=== PATIENT | male | born 1970 | race Caucasian/White ===

== ENCOUNTER 2020-05-27 07:27 | Outpatient (CLI) | payer OTHER, SELFPAY ==
--- NOTE | ~2020-05-27 | XR_ITS ---
EXAMINATION: XR thoracic spine 3V DATE: 05/27/2020 08:58 INDICATION: Back pain TECHNIQUE: AP, lateral and lateral swimmer's views of the thoracic spine were obtained. COMPARISON: None. FINDINGS: There is no fracture, dislocation, or subluxation. Mild loss of intervertebral disc space h eight is present in the lower thoracic spine. The vertebral body heights are maintained. Small degene rative osteophytes project from the anterior endplates of multiple vertebral bodies. IMPRESSION: 1. Mild thoracic spondylosis without acute findings. Reviewed, dictated and finalized at location A.
--- NOTE | ~2020-05-27 | XR_ITS ---
EXAMINATION: XR chest 2V DATE: 05/27/2020 08:58 INDICATION: Tobacco smoker presenting with mid back pain TECHNIQUE: PA and lateral views of the chest were obtained. COMPARISON: Chest radiograph dated 06/23/[address] dated 09/07/2019 FINDINGS: Mild apical emphysema better appreciated on prior CT with unchanged mild biapical pleural-parenchymal scarring. No other airspace opacities, pulmonary edema, pleural effusion or pneumothorax. The cardio mediastinal silhouette is normal. Thoracic dextroscoliosis with mild spondylosis. IMPRESSION: 1. Mild emphysema with biapical pleural-parenchymal scarring. No acute cardiopulmonary disease. Reviewed, dictated and finalized at location A. IMPRESSION: 1. Mild emphysema with biapical pleural-parenchymal scarring. No acute cardiopu lmonary disease.
== END 2020-05-27 07:28 ==
PROVIDERS: PCP Family Medicine; Visit Provider Family Medicine
DX: Z72.0 Tobacco use (principal); M47.894 Other spondylosis, thoracic region; J43.9 Emphysema, unspecified
CPT/HCPCS: 71046; 72072

== ENCOUNTER 2020-09-20 07:37 | Outpatient (CLI) | payer BC, SELFPAY ==
--- NOTE | ~2020-09-20 | MR_ITS ---
EXAMINATION: MR cervical spine wo con EXAM DATE: 09/20/2020 08:26 INDICATION: mixed hyperlipidemia. Chronic neck pain. Right arm numbness/pain. TECHNIQUE: Multi-sequential, multiplanar MR images of the cervical spine were obtained without contra st. Axial T2, axial T2 MERGE sequence. Sagittal T1, T2, T2 fat saturation images also obtained. Th ere is no prior study for comparison. FINDINGS: Mild to moderate disc disease C5-6 and 6-7, mild IIIc-3 5 and C7-T4. The vertebral bodies are aligned in the AP dimension. The spinal cord signal intensity and intrinsic morphology is normal. Cervicomedullary junction is normal in appearance. There are no suspicious marrow signal abnormaliti es. Paraspinal soft tissue is unremarkable. Level by level evaluation: C2-C3: Disc does not extend beyond the endplate margin. Uncovertebral joint arthropathy: None. Facet joint arthropathy: Mild bilateral. Neural foraminal stenosis: No stenosis. Central canal stenosis: No stenosis. C3-C4: There is a minimal diffuse disc bulge. Uncovertebral joint arthropathy: Mild bilateral. Facet joint arthropathy: Mild bilateral. Neural foraminal stenosis: Mild to moderate bilateral. Central canal stenosis: Mild bilateral. C4-C5: There is a minimal diffuse disc bulge. Uncovertebral joint arthropathy: Mild to moderate right, mild left. Facet joint arthropathy: Moderate right, mild left. Neural foraminal stenosis: Moderate to severe right, mild to moderate left. Central canal stenosis: Minimal. C5-C6: There is a mild diffuse disc bulge. Uncovertebral joint arthropathy: Moderate bilateral. Facet joint arthropathy: Mild to moderate bilateral. Neural foraminal stenosis: Moderate to severe right, moderate left. Central canal stenosis: Mild. C6-C7: There is a mild diffuse disc bulge. Uncovertebral joint arthropathy: Moderate to severe right, moderate left. Facet joint arthropathy: Mild bilateral. Neural foraminal stenosis: Severe right, mild left. Central canal stenosis: Mild. C7-T1: Disc does not extend beyond the endplate margin. Uncovertebral joint arthropathy: Mild to moderate bilateral. Facet joint arthropathy: Mild right. Neural foraminal stenosis: Mild to moderate right, mild left. Central canal stenosis: No stenosis. IMPRESSION: 1. Significant right-sided mid cervical neural foraminal stenosis. Reviewed, dictated and finalized at location B. [employer]
== END 2020-09-20 07:38 ==
PROVIDERS: Visit Provider Internal Medicine
DX: E78.2 Mixed hyperlipidemia (principal); M54.2 Cervicalgia
CPT/HCPCS: 72141